=== PATIENT | female | born 1950 ===

== ENCOUNTER → 2018-08-17 | Outpatient (REF) | payer MEDICARE, OTHER ==
[2018-08-17 18:37] LABS: TOTAL PROTEIN 6.9 GM/DL (6.4-8.2)
[2018-08-17 18:47] LABS: FOLATE > 24.0 NG/ML; VITAMIN B12 LEVEL 1036 PG/ML
[2018-08-17 18:57] LABS: HEMOGLOBIN A1c 6.2 %
[2018-08-22 14:27] LABS: ALBUMIN 4.26 GM/DL (3.29-5.55); ALBUMIN % 61.7 % (55.8-66.1); ALPHA-1-GLOBULIN % 4.4 % (2.9-4.9); ALPHA-2-GLOBULINS 0.66 GM/DL (0.42-0.99); ALPHA-2-GLOBULINS % 9.6 % (7.1-11.8); BETA-1-GLOBULINS 0.46 GM/DL (0.28-0.60); BETA-1-GLOBULINS % 6.7 % (4.7-7.2); BETA-2-GLOBULINS 0.43 GM/DL (0.19-0.55); BETA-2-GLOBULINS % 6.2 % (3.2-6.5); GAMMA GLOBULIN % 11.4 % (11.1-18.8); GAMMA GLOBULINS 0.79 GM/DL (0.65-1.58)
[2018-08-24 00:06] LABS: VITAMIN B1 LEVEL WHOLE BLOOD 193.2 nmol/L (66.5-200.0); VITAMIN B6,PYRIDOXAL PHOSPHATE 42.4 ug/L (2.0-32.8); VITAMIN E(ALPHA TOCOPHEROL) 14.8 mg/L (9.0-29.0); VITAMIN E(GAMMA TOCOPHEROL) 0.6 mg/L (0.5-4.9)
== END ==
LOC: M LABDRAW1 17:05
PROVIDERS: ATTEND Psychiatry & Neurology Neurology
DX: E83.01 Wilson's disease (principal); E11.9 Type 2 diabetes mellitus without complications; E51.9 Thiamine deficiency, unspecified; E53.8 Deficiency of other specified B group vitamins; M79.2 Neuralgia and neuritis, unspecified